=== PATIENT | male | born 1970 | race Caucasian/White ===

== ENCOUNTER 2021-06-11 17:06 | Emergency (ER) | payer MEDICAID, MEDICARE, OTHER ==
[~2021-06-11] VITALS: Ht 175.3 cm; Wt 71.3 kg
[~2021-06-11 17:06] MED LIST: HYDR-4353 PO; IBUP-1984 PO
[2021-06-11] MEDS: morphine 4 MG/ML inj SYRINge IM ONE ×2 (17:40→19:30)
[2021-06-11] MEDS: ibuprofen tablet 400 MG TABLET PO ONE (17:42)
[2021-06-11] MEDS: HYDROcodone/acetaminophen 10/325mg tab PO STA (17:42)
[2021-06-11] MEDS ORDERED: BUPIVAcaine/PF 2.5 mg/ml (0.25%) 30ml vial IJ ONE (20:10)
[2021-06-11] MEDS: propofol 1000mg/100ml bottle 100 ML IV ONE (21:05)
[2021-06-11] MEDS: propofol 10mg/ml 20ml vial IV ONE ×2 (21:05→21:06)
[2021-06-11] MEDS: BUPIVAcaine/PF 2.5mg/ml (0.25%) 10ml vial IJ ONE (21:05)
[2021-06-11] MEDS: propofol inj 20 ML IV ONE (21:06)
[2021-06-11] MEDS ORDERED: IBUP-1986 PO (21:23)
[2021-06-11] MEDS ORDERED: HYDR-3964 PO (21:24)
[2021-06-11] MEDS: TETanus/Pertussis (Acell)/Diphther VAC/PF (Tdap-Adult) 0.5ml syringe IMVAC ONE (22:39)
[2021-06-11 22:51] VITALS: BP 127/76
== END 2021-06-11 22:52 | disposition home or self-care (01) ==
LOC: ER 17:07
DX: S52.511A Displaced fracture of right radial styloid process, initial encounter for closed fracture (principal); S52.611A Displaced fracture of right ulna styloid process, initial encounter for closed fracture; S00.81XA Abrasion of other part of head, initial encounter; M25.531 Pain in right wrist; F12.90 Cannabis use, unspecified, uncomplicated; Z98.890 Other specified postprocedural states; Z88.2 Allergy status to sulfonamides; Z79.899 Other long term (current) drug therapy; V89.2XXA Person injured in unspecified motor-vehicle accident, traffic, initial encounter; Y93.89 Activity, other specified; Y92.89 Other specified places as the place of occurrence of the external cause; Y99.8 Other external cause status
CPT/HCPCS: 25605; 73110; 90471; 90715; 94799; 96372; 99285; J2270; J2704; 94760

== ENCOUNTER 2021-06-13 16:56 | Emergency (ER) | payer OTHER ==
[~2021-06-13] VITALS: Ht 175.3 cm; Wt 84.1 kg
[~2021-06-13 16:56] MED LIST changes: +HYDR-3964 PO; +IBUP-1986 PO
[2021-06-13 17:33] VITALS: BP 138/89
[2021-06-13] MEDS ORDERED: ondansetron 4mg rapidly disintigrating tab PO ONE (17:50)
[2021-06-13] MEDS ORDERED: morphine 4 MG/ML inj SYRINge IM ONE (17:50)
[2021-06-13] MEDS ORDERED: ONDA4TAB6 PO (19:10)
[2021-06-13] MEDS ORDERED: HYDR-3965 PO (19:10)
== END 2021-06-13 20:18 | disposition home or self-care (01) ==
LOC: ER 16:57
DX: S52.91XD Unspecified fracture of right forearm, subsequent encounter for closed fracture with routine healing (principal); S52.201D Unspecified fracture of shaft of right ulna, subsequent encounter for closed fracture with routine healing; M25.521 Pain in right elbow; F12.90 Cannabis use, unspecified, uncomplicated; Z98.890 Other specified postprocedural states; Z88.2 Allergy status to sulfonamides; Z79.899 Other long term (current) drug therapy; X58.XXXD Exposure to other specified factors, subsequent encounter
CPT/HCPCS: 29125; 73090; 96372; 99283; J2270

== ENCOUNTER 2023-10-21 11:00 | Emergency (ER) | payer MEDICAID, OTHER ==
[~2023-10-21] VITALS: Ht 175.3 cm; Wt 69.8 kg
[~2023-10-21 11:00] MED LIST changes: -HYDR-3964 PO; +ONDA4TAB6 PO
[2023-10-21] MEDS: morphine IR (immed. release) 30mg tablet PO STA (12:36)
[2023-10-21] MEDS: LIDOcaine 1% 30ml preserv. free vial IJ STA (13:05)
[2023-10-21] MEDS ORDERED: MORP30TA PO (14:44)
[2023-10-21 14:57] VITALS: BP 108/77; PULSE 79; RESP 17; TEMP 98.7; O2SAT 95
== END 2023-10-21 14:59 | disposition home or self-care (01) ==
LOC: ER 11:02
DX: S62.102A Fracture of unspecified carpal bone, left wrist, initial encounter for closed fracture (principal); Z88.2 Allergy status to sulfonamides; Z79.899 Other long term (current) drug therapy; Z79.1 Long term (current) use of non-steroidal anti-inflammatories (NSAID); F12.90 Cannabis use, unspecified, uncomplicated; W01.0XXA Fall on same level from slipping, tripping and stumbling without subsequent striking against object, initial encounter; Y93.89 Activity, other specified; Y92.89 Other specified places as the place of occurrence of the external cause; Y99.8 Other external cause status
CPT/HCPCS: 25605; 71101; 73100; 73110; 99284

== ENCOUNTER 2023-11-01 10:47 | Day surgery (SDC) | payer MEDICAID ==
[2023-10-29 15:59] LABS: BASOPHILS # (AUTO) 0.1 X10'3 (0-0.2); EOSINOPHILS # (AUTO) 0.1 X10'3 (0-0.9); EOSINOPHILS % (AUTO) 1.6 % (0-6); HEMATOCRIT 38.9 % (42.0-52.0); LYMPHOCYTES # (AUTO) 1.4 X10'3 (1.1-4.8); LYMPHOCYTES % (AUTO) 16.4 % (21-51); MEAN CORPUSCULAR HEMOGLOBIN 29.3 PG (27.0-31.0); MEAN CORPUSCULAR HGB CONC 33.2 g/dL (33.0-36.5); MEAN CORPUSCULAR VOLUME 88.2 FL (78-98); MEAN PLATELET VOLUME 5.9 FL (7.4-10.4); MONOCYTES # (AUTO) 0.8 X10'3 (0-0.9); MONOCYTES % (AUTO) 9.5 % (2-12); NEUTROPHILS % (AUTO) 71.5 % (42-75); PLATELET COUNT 335 X10'3 (140-440); RED BLOOD COUNT 4.42 X10'6 (4.70-6.10); RED CELL DISTRIBUTION WIDTH 15.5 % (11.5-14.5); WHITE BLOOD COUNT 8.4 X10'3 (4.5-11.0)
[2023-10-29 16:08] LABS: ALANINE AMINOTRANSFERASE 43 U/L (12-78); ALBUMIN 3.9 G/DL (3.4-5.0); ALKALINE PHOSPHATASE 83 IU/L (46-116); ANION GAP 10 (8-16); ASPARTATE AMINO TRANSFERASE 41 U/L (10-37); BILIRUBIN,TOTAL 0.4 MG/DL (0.1-1.0); BLOOD UREA NITROGEN 11 MG/DL (7-18); BUN/CREATININE RATIO 17.5 (10.0-20.0); CALCIUM 8.6 MG/DL (8.5-10.1); CHLORIDE 101 MMOL/L (99-107); CREATININE 0.63 MG/DL (0.60-1.10); GLUCOSE 81 MG/DL (70-104); SODIUM 137 MMOL/L (135-145); TOTAL CARBON DIOXIDE 25.6 MMOL/L (24-32); TOTAL PROTEIN 7.8 G/DL (6.4-8.2); eGFR > 90 ML/MIN
[2023-11-01] VITALS (7 sets, daily range): BP systolic 125–144; BP diastolic 87–102; PULSE 53–63; RESP 14–16; TEMP 98.1; O2SAT 96–100
[~2023-11-01] VITALS: Ht 175.3 cm; Wt 69.0 kg
[2023-11-01] MEDS: famotidine 20mg tablet PO ONE (05:30)
[2023-11-01] MEDS: ringers solution, lacted 1,000 ML IV SCH (05:30)
[2023-11-01] MEDS: cefazolin 2gm/D5W 100mL 100 ML IV ONE (05:30)
[~2023-11-01 10:47] MED LIST changes: -HYDR-4353 PO; -IBUP-1986 PO; +LIDOcaine 2% (20mg/ml) 5ml vial ONE; -ONDA4TAB6 PO; +TYLENOL
[2023-11-01] MEDS ORDERED: acetaminophen 1,000mg/100ml IV 100 ML IV ONE (11:05)
[2023-11-01] MEDS ORDERED: hydrALAZINE 20mg/ml inj. IV PRN (11:05)
[2023-11-01] MEDS ORDERED: ketorolac trometh. 30mg/ml inj. IV ONE (11:05)
[2023-11-01] MEDS ORDERED: morphine 2 MG/ML inj. syringe IV PRN (11:05)
[2023-11-01] MEDS ORDERED: meperidine/PF 25mg/ml syringe IV PRN ×3 (11:05)
[2023-11-01] MEDS ORDERED: labetalol 20mg/4ml (5mg/ml) syringe IV PRN (11:05)
[2023-11-01] MEDS ORDERED: ondansetron/PF 4mg/2ml inj IV PRN (11:05)
[2023-11-01] MEDS ORDERED: proCHLORperazine 10 MG/2 ml inj IV PRN (11:05)
[2023-11-01] MEDS ORDERED: ringers solution, lacted 1,000 ML IV SCH (11:05)
[2023-11-01] MEDS ORDERED: cloNIDine hcl/PF 100mcg/ml inj ONE (12:03)
[2023-11-01] MEDS: morphine 4 MG/ML inj SYRINge IV PRN (12:24)
[2023-11-01] MEDS ORDERED: BUPIVAcaine/PF 2.5mg/ml (0.25%) 10ml vial ONE (13:34)
[2023-11-01] MEDS ORDERED: sevoflurane 250ml liquid IH ONE (13:38)
[2023-11-01] MEDS ORDERED: fentaNYL/PF 50MCG/1 ML 2ML syringe ONE (13:44)
[2023-11-01] MEDS ORDERED: midazolam 1 mg/ML 2ml injection ONE (13:49)
[2023-11-01] MEDS ORDERED: propofol inj 20 ML IV ONE (14:21)
[2023-11-01] MEDS ORDERED: LIDOcaine 2% (20mg/ml) 5ml vial ONE (14:21)
[2023-11-01] MEDS ORDERED: dexamethasone sod phosphate 4mg/ml inj. ONE (14:21)
[2023-11-01] MEDS ORDERED: ROPIVAcaine 0.5% (5mg/ml) 30ml vial ONE (14:21)
[2023-11-01] MEDS ORDERED: ondansetron/PF 4mg/2ml inj ONE (14:22)
[2023-11-01] MEDS: BUPIVAcaine/PF 2.5mg/ml (0.25%) 10ml vial ONE (14:33)
== END 2023-11-01 15:48 | disposition home or self-care (01) ==
LOC: PAS 10:47
PROVIDERS: ATTEND Orthopaedic Surgery Hand Surgery
DX: S52.592A Other fractures of lower end of left radius, initial encounter for closed fracture (principal); G89.18 Other acute postprocedural pain; Z87.891 Personal history of nicotine dependence; Z79.1 Long term (current) use of non-steroidal anti-inflammatories (NSAID); Z98.890 Other specified postprocedural states; Z88.2 Allergy status to sulfonamides; X58.XXXA Exposure to other specified factors, initial encounter; Y93.89 Activity, other specified; Y92.89 Other specified places as the place of occurrence of the external cause; Y99.8 Other external cause status
CPT/HCPCS: 25607; 36415; 64417; 80053; 82948; 85025; 93005; A6222; C1713; J0690; J0735; J1100; J2250; J2270; J2405; J2704; J2795; J3010; J3490; J7030; J7120; Z7506; Z7508; Z7512; A4215; A4565; A4618; A6449; A7000

== ENCOUNTER 2024-07-22 13:36 | Emergency (ER) | payer MEDICAID ==
[~2024-07-22] VITALS: Ht 175.3 cm; Wt 68.0 kg
[~2024-07-22 13:36] MED LIST changes: -LIDOcaine 2% (20mg/ml) 5ml vial ONE
[2024-07-22 13:43] VITALS: TEMP 98.8
[2024-07-22 15:31] VITALS: BP 128/77; PULSE 82; RESP 16; O2SAT 97
== END 2024-07-22 15:34 | disposition home or self-care (01) ==
LOC: ER 13:36
DX: M54.50 Low back pain, unspecified (principal); F12.90 Cannabis use, unspecified, uncomplicated; Z88.2 Allergy status to sulfonamides; W19.XXXA Unspecified fall, initial encounter; Y93.89 Activity, other specified; Y92.89 Other specified places as the place of occurrence of the external cause; Y99.8 Other external cause status
CPT/HCPCS: 99281

== ENCOUNTER 2024-08-04 13:56 | Outpatient (CLI) | payer MEDICAID | END 2024-08-04 23:59 | disposition home or self-care (01) | LOC: RAD 13:56 | PROVIDERS: ATTEND Physician Assistant | DX: S52.612A Displaced fracture of left ulna styloid process, initial encounter for closed fracture (principal); S52.392A Other fracture of shaft of radius, left arm, initial encounter for closed fracture; M47.816 Spondylosis without myelopathy or radiculopathy, lumbar region; M43.16 Spondylolisthesis, lumbar region; K56.41 Fecal impaction; M25.531 Pain in right wrist; M79.642 Pain in left hand; X58.XXXA Exposure to other specified factors, initial encounter; Y93.89 Activity, other specified; Y92.89 Other specified places as the place of occurrence of the external cause; Y99.8 Other external cause status | CPT/HCPCS: 72074; 72110; 73110 ==